=== PATIENT | female | born 1995 | race Caucasian/White ===

== ENCOUNTER 2019-03-21 10:50 | Emergency (ER) | payer OTHER ==
--- NOTE | 2019-03-21 11:57 | EDPHYS ---
Physician Documentation [facility] Name: Ivonne Enriquez Age: 23 yrs Sex: Female : 1995 Arrival Date: 03/21/2019 Time: 10:53 Bed 12 Private MD: ED Physician Felice Arthur HPI: 03/21 11:24 This 23 yrs old Female presents to ER via Ambulatory with complaints of Right pm1 Wrist Injury. 11:24 The patient or guardian reports pain. The complaints affect the right wrist diffusely. pm1 Context: resulted from a crush injury, Door. Onset: The symptoms/episode began/occurred just prior to arrival. Modifying factors: The symptoms are alleviated by holding still, the symptoms are aggravated by movement. Associated signs and symptoms: Pertinent negatives: cyanosis distally, decreased sensation distally, numbness distally, tingling distally. The patient has not experienced similar symptoms in the past. The patient has not recently seen a physician. Patient was going outside and opened the door. Strong gush of wind closed the door back on her right wrist. Patient passed out for the pain and she was caught by her . Patient did not hit the ground. No headache, head injury, neck pain, nausea, vomiting. Patient believes that she might have held her breath. 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 - Social history:: Smoking status: Patient/guardian denies using tobacco, Patient/guardian denies using alcohol. - Ebola Screening: : Patient negative for fever greater than or equal to 101.5 degrees Fahrenheit, and additional compatible Ebola Virus Disease symptoms Patient denies exposure to infectious person Patient denies travel to an Ebola-affected area in the 21 days before illness onset. ROS: 11:24 Constitutional: Negative for fever, chills, and weight loss, Eyes: Negative for injury, pm1 pain, redness, and discharge, ENT: Negative for injury, pain, and discharge, Neck: Negative for injury, pain, and swelling, Cardiovascular: Negative for chest pain, palpitations, and edema, Respiratory: Negative for shortness of breath, cough, wheezing, and pleuritic chest pain, Abdomen/GI: Negative for abdominal pain, nausea, vomiting, diarrhea, and constipation, Back: Negative for injury and pain, : Negative for injury, bleeding, discharge, and swelling. 11:24 Skin: Negative for injury, rash, and discoloration, Neuro: Negative for headache, weakness, numbness, tingling, and seizure. 11:24 MS/extremity: Positive for pain, of the right wrist, Negative for decreased range of motion, deformity. Exam: 11:24 Hand exam: ROM: full active range of motion, in the right wrist, full passive range of pm1 motion, in the right wrist, Circulation is intact in all extremities. sensation intact. Compartment Syndrome exam of affected extremity: is normal. 11:24 Constitutional: This is a well developed, well nourished patient who is awake, alert, and in no acute distress. Head/Face: Normocephalic, atraumatic. Eyes: Pupils equal round and reactive to light, extra-ocular motions intact. Lids and lashes normal. Conjunctiva and sclera are non-icteric and not injected. Cornea within normal limits. Periorbital areas with no swelling, redness, or edema. Neck: Trachea midline, no thyromegaly or masses palpated, and no cervical lymphadenopathy. Supple, full range of motion without nuchal rigidity, or vertebral point tenderness. No Meningismus. Chest/axilla: Normal chest wall appearance and motion. Nontender with no deformity. No lesions are appreciated. Cardiovascular: Regular rate and rhythm with a normal S1 and S2. No gallops, murmurs, or rubs. No pulse deficits. Respiratory: Lungs have equal breath sounds bilaterally, clear to auscultation and percussion. No rales, rhonchi or wheezes noted. No increased work of breathing, no retractions or nasal flaring. Abdomen/GI: Soft, non-tender, with normal bowel sounds. No distension or tympany. No guarding or rebound. No evidence of tenderness throughout. Back: No spinal tenderness. No costovertebral tenderness. Full range of motion. Skin: Warm, dry with normal turgor. Normal color with no rashes, no lesions, and no evidence of cellulitis. 11:24 Neuro: Orientation: is normal, Mentation: is normal, Motor: is normal, moves all fours, Sensation: is normal, no obvious gross deficits, Gait: is steady, at a normal pace, without difficulty. Vital Signs: 10:55 BP 116 / 69; Pulse 76; Resp 18; Temp 98.2(O); Pulse Ox 100% on R/A; Weight 45.36 kg; hj Height 5 ft. 3 in. (160.02 cm); Pain 4/10; 10:55 Body Mass Index 17.71 (45.36 kg, 160.02 cm) hj Procedures: 12:10 Splinting: Splint applied to right wrist using wrist splint, applied by nurse. Examined pm1 by me, post splint application: neurovascular intact, 2+ distal pulses palpable, brisk capillary refill noted, Patient tolerated well. MDM: 11:00 Patient medically screened. pm1 11:31 Data reviewed: vital signs. Data interpreted: Pulse oximetry: on room air is 100 %. pm1 Interpretation: normal. 11:55 Counseling: I had a detailed discussion with the patient and/or guardian regarding: the pm1 historical points, exam findings, and any diagnostic results supporting the discharge/admit diagnosis, radiology results, the need for outpatient follow up, a orthopedic surgeon, to return to the emergency department if symptoms worsen or persist or if there are any questions or concerns that arise at home. 03/21 11:25 Order name: Urine Dipstick--Ancillary (enter results); Complete Time: 14:32 03/21 11:25 Order name: Urine --Ancillary (enter results); Complete Time: 14:32 03/21 10:58 Order name: Urine Dipstick-Ancillary (obtain specimen); Complete Time: 11:22 03/21 10:58 Order name: Urine Test (obtain specimen); Complete Time: 11:22 03/21 11:01 Order name: Wrist Right 3 View XRAY; Complete Time: 14:32 pm1 03/21 11:55 Order name: Splint - Wrist; Complete Time: 12:10 pm1 Administered Medications: 11:22 Not Given (Patient Refused): Tylenol 650 mg PO once Disposition: 15:53 Co-signature as Attending Physician, Felice Arthur MD. rn Disposition: 03/21/19 11:57 Discharged to Home. Impression: Contusion of right wrist. - Condition is Stable. - Discharge Instructions: Contusion, Wrist Splint. - Prescriptions for Tylenol- Codeine #3 300-30 mg Oral Tablet - take 1 tablet by ORAL route every 6 hours As needed; 12 tablet. - Medication Reconciliation Form, Thank You Letter, Antibiotic Education, Prescription Opioid Use form. - Follow up: Emergency Department; When: As needed; Reason: Worsening of condition. Follow up: Private Physician; When: 2 - 3 days; Reason: Recheck today's complaints, Continuance of care, Re-evaluation by your physician. - Problem is new. - Symptoms have improved. Signatures: Dispatcher [employer] EDMS Fabiana Raymundo RN RN iw Nieto, Roman, MD MD rn Joaquin, Henry RN Nghia Christiansen, LAMINATION OPERATOR LAMINATION OPERATOR pm1 Corrections: (The following items were deleted from the chart) 12:12 11:57 03/21/2019 11:57 Discharged to Home. Impression: Contusion of right wrist. iw Condition is Stable. Forms are Medication Reconciliation Form, Thank You Letter, Antibiotic Education, Prescription Opioid Use. Follow up: Emergency Department; When: As needed; Reason: Worsening of condition. Follow up: Private Physician; When: 2 - 3 days; Reason: Recheck today's complaints, Continuance of care, Re-evaluation by your physician. Problem is new. Symptoms have improved. pm1
--- NOTE | 2019-03-21 11:57 | ER ---
Nurse's Notes [facility] Name: Ivonne Enriquez Age: 23 yrs Sex: Female : 1995 Arrival Date: 03/21/2019 Time: 10:53 Bed 12 Private MD: Diagnosis: Contusion of right wrist Presentation: 03/21 10:53 Presenting complaint: Patient states: i smashed my R wrist on our room earlier today, reports 4/10; denies numbness or tingling on the affected hand;. Transition of care: patient was not received from another setting of care. Onset of symptoms was March 21, 2019. Risk Assessment: Do you want to hurt yourself or someone else? Patient reports no desire to harm self or others. Initial Sepsis Screen: Does the patient meet any 2 criteria? No. Patient's initial sepsis screen is negative. Does the patient have a suspected source of infection? No. Patient's initial sepsis screen is negative. Care prior to arrival: None. 10:53 Method Of Arrival: Ambulatory 10:53 Acuity: SUSSY 4 Triage Assessment: 11:22 General: Appears in no apparent distress. uncomfortable, Behavior is calm, cooperative, hj appropriate for age. Pain: Complains of pain in R wrist. Musculoskeletal: Reports pain in R wrist. Injury Description: smash. 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 - Social history:: Smoking status: Patient/guardian denies using tobacco, Patient/guardian denies using alcohol. - Ebola Screening: : Patient negative for fever greater than or equal to 101.5 degrees Fahrenheit, and additional compatible Ebola Virus Disease symptoms Patient denies exposure to infectious person Patient denies travel to an Ebola-affected area in the 21 days before illness onset. Screenin:22 Abuse screen: Denies threats or abuse. Denies injuries from another. Nutritional hj screening: No deficits noted. Tuberculosis screening: No symptoms or risk factors identified. Fall Risk None identified. Assessment: 11:35 General: Appears in no apparent distress. comfortable, Behavior is calm, cooperative. iw Pain: Complains of pain in right wrist. Neuro: Level of Consciousness is awake, alert, obeys commands, Moves all extremities. Cardiovascular: Patient's skin is warm and dry. Respiratory: Respiratory effort is even, unlabored, Respiratory pattern is regular. Derm: Skin is intact, is healthy with good turgor. Musculoskeletal: Range of motion: intact in all extremities. Vital Signs: 10:55 BP 116 / 69; Pulse 76; Resp 18; Temp 98.2(O); Pulse Ox 100% on R/A; Weight 45.36 kg; hj Height 5 ft. 3 in. (160.02 cm); Pain 4/10; 10:55 Body Mass Index 17.71 (45.36 kg, 160.02 cm) hj ED Course: 10:53 Patient arrived in ED. hj 10:54 Triage completed. hj 10:56 Arm band placed on left wrist. hj 10:58 Nghia Givens NP is PHCP. pm1 10:58 Felice Arthur MD is Attending Physician. pm1 11:22 Woo Gasca RN is Primary Nurse. hj 11:23 Patient has correct armband on for positive identification. Bed in low position. Call light in reach. Side rails up X 1. Adult w/ patient. 11:58 Wrist Right 3 View XRAY In Process Unspecified. EDMS 12:11 No provider procedures requiring assistance completed. Patient did not have IV access iw during this emergency room visit. Administered Medications: 11:22 Not Given (Patient Refused): Tylenol 650 mg PO once hj Outcome: 11:57 Discharge ordered by . pm1 12:11 Discharged to home ambulatory, with family. iw 12:11 Condition: good 12:11 Discharge instructions given to patient, Instructed on discharge instructions, follow up and referral plans. medication usage, Demonstrated understanding of instructions, follow-up care, medications, Prescriptions given X 1. 12:12 Patient left the ED. iw Signatures: Dispatcher [employer] EDMS Fabiana Raymundo RN RN Woo Gasca RN RN Nghia Givens NP [employer]UB COUNSELOR pm1 Corrections: (The following items were deleted from the chart) 10:57 10:55 45.36 kg; Height 5 ft. 3 in.; BMI: 17.7; Pain 4/10; hj hj
--- NOTE | 2019-03-21 12:16 | RAD REPORT ---
EXAM DESCRIPTION: RAD - Wrist Right 3 View - 03/21/2019 11:57 am CLINICAL HISTORY: Right wrist pain status post injury FINDINGS: No fracture or dislocation is seen. If the patient continues to have symptoms to suggest a n occult fracture then a followup plain film series in 7 days would be recommended.
[2019-03-21 12:17] LABS: Urine Blood NEGATIVE (NEG); Urine Glucose NEGATIVE (NEG); Urine Protein 1+ (NEG); Urine Specific Gravity 1.025 (1.005-1.030)
== END 2019-03-21 12:12 | disposition home or self-care (01) ==
LOC: ER 10:50
DX: S60.211A Contusion of right wrist, initial encounter (principal); X58.XXXA Exposure to other specified factors, initial encounter; Y93.9 Activity, unspecified; Y92.9 Unspecified place or not applicable; F41.9 Anxiety disorder, unspecified; F32.9 Major depressive disorder, single episode, unspecified
CPT/HCPCS: 81003; 81025; 99283